=== PATIENT | female | born 1990 | race Two or more races ===

== ENCOUNTER 2024-09-27 12:55 | Emergency (ER) | payer MEDICAID, SELFPAY ==
[2024-09-27 13:11] VITALS: BP 137/86; PULSE 76; RESP 16; TEMP 36.9; O2SAT 98; BMI 26.4
--- NOTE | 2024-09-27 13:13 | XR_ITS ---
Examination: CT maxillofacial, without intravenous contrast. 2-D sagittal reconstructions. 3-D reconstructions. Date and time of exam:September 27, 2024 1353 hrs. Indications: Injury to the face today with nose pain CTDI: vol (mGy):25.3 DLP: (mGycm):438 Technique: Multiple axial images of maxillofacial region, 3.0 mm slice thickness. 2-D sagittal and coronal reconstructions. 3-D reconstructions. Low dose protocols were performed. One or more of the following dose reduction techniques were used; automated exposure control, adjustment of the mA and/or KV according to patient size, use of iterative reconstruction technique. Findings: Orbital rims intact Right nasal bone fracture with minimal offset axial image 7 No depression zygomatic arches Pterygoid plates maxilla and the mandible intact Impression: Acute minimally displaced right nasal bone fracture.
[2024-09-27] MEDS: HYDROcodone/APAP 5/325 TABLET 1 TAB PO (13:59)
--- NOTE | 2024-09-27 14:14 | PD.EDADULT ---
ED General RME/HPI General Chief complaint: General Adult/Misc Complain Stated complaint: RAN INTO KITCHEN CABINET W/ NOSE Time Seen by Provider: 09/27/24 13:13 Arrival date/time: 09/27/24 12:55 34-year-old female presents Emergency Department today with complaints of pain to her nose with mild swelling. Patient reports that she accidentally ran into a cabinet in the kitchen injuring her nose today patient with no headache dizziness or weakness Limitations: no limitations Related Data Previous Rx's ?Medication ?Instructions ?Recorded hydrocodone 5 mg-acetaminophen 325 1 tab PO BID PRN pain #10 tabs 09/27/24 mg tablet Allergies Allergy/AdvReac Type Severity Reaction Status Date / Time No Known Allergies Allergy Verified 09/27/24 13:00 Review of Systems Review of Systems Systems Reviewed: All systems reviewed, normal except as documented Constitutional Constitutional: Reports system reviewed and no additional complaints, except as documented, Denies fever(s) and Denies headache(s) Eyes Eyes: Reports system reviewed and no additional complaints, except as documented and Denies blurry vision ENT Ears, Nose, Mouth, and Throat: Reports system reviewed and no additional complaints, except as documented, Denies headache(s), Denies nasal congestion, Denies nasal discharge and Reports nose pain Cardiovascular Cardiovascular: Reports system reviewed and no additional complaints, except as documented, Denies chest pain and Denies dyspnea Respiratory Respiratory: Reports system reviewed and no additional complaints, except as documented, Denies chest congestion, Denies cough and Denies dyspnea Gastrointestinal Gastrointestinal: Reports system reviewed and no additional complaints, except as documented and Denies abdominal pain Integumentary/Breasts Skin/Breast: Reports system reviewed and no additional complaints, except as documented and Denies rash Neurologic Neurologic: Reports system reviewed and no additional complaints, except as documented, Reports as per HPI and Denies headache(s) Past Medical History Social History SMOKING STATUS: Never smoker ED Exam General Limitations: Present no limitations General appearance: Present alert and in no apparent distress Expanded Head Exam Head image:  1. Trauma Eye Eye exam: Present normal appearance, PERRL and EOMI ENT ENT exam: Present normal exam, normal oropharynx and mucous membranes moist Neck Neck exam: Present normal inspection, full ROM and trachea midline Chest Chest inspection: Present normal inspection and symmetric chest wall rise Respiratory Respiratory exam: Present normal lung sounds bilaterally Cardiovascular Cardiovascular exam: Present regular rate, normal rhythm and normal heart sounds Abdominal Exam Abdominal exam: Present soft and normal bowel sounds Extremities Exam Extremities exam: Present normal inspection and full ROM Back Exam Back exam: Present normal inspection and full ROM Neurological Exam Neurological exam: Present alert, oriented X3, CN II-XII intact, normal gait and reflexes normal; Absent motor sensory deficit Psychiatric Psychiatric exam: Present normal affect and normal mood Skin Skin exam: Present warm, dry, intact and normal color; Absent rash Course Quality Measures none Orders Category Date Time Status CT facial bones wo con Stat Exams 09/27/24 13:13 Completed HYDROcodone*/APAP 5/325 [Kinmundy 5/325] Med 09/27/24 13:13 Discontinued 1 tab PO X1 ONE Vital Signs Vital signs: Vital Signs Temperature 98.5 F 09/27/24 13:11 Pulse Rate 76 09/27/24 13:11 Respiratory Rate 16 09/27/24 13:11 Blood Pressure 137/86 H 09/27/24 13:11 Pulse Oximetry (%) 98 09/27/24 13:11 Oxygen Delivery Method Room Air 09/27/24 13:11 O2 saturation 98% on room air within normal limits Discharge Plan Plan Patient Disposition: HOME (Self Care) Discharge Disposition comment: Stable Prescriptions/Referrals Prescriptions/Med Rec: New hydrocodone-acetaminophen 5-325 mg tablet 1 tab PO BID MDD 10 PRN (Reason: pain) Qty: 10 0RF Referrals: No Primary/Family,Physician [Primary Care Provider] - 09/28/24 Problem List Clinical Impression: Closed fracture nasal bone Patient/Caregiver Discharge Instructions Education Materials: Facial Fracture Additional Instructions: Please follow up with your primary care doctor in the next 24-48hrs for any worsening symptoms return here immediately Print Language: Zambian Stand Alone Forms: The [employer] travel Info., Patient Portal Info Letter 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 Patient reports that she accidentally ran into a cabinet in the kitchen injuring her nose today patient with no headache dizziness or weakness On exam patient well-appearing patient is not appear ill or toxic no acute distress on exam patient has trauma to the nose no significant deformity Patient has no lacerations CT scan of the facial bones obtained patient does have fracture of the nasal bone Patient given pain medication here discharged home with pain medication Patient strongly encouraged to follow-up with ENT specialist soon as possible Clinical Information Provided by patient Medical Records Reviewed [facility] Meds/Rx Considered, not Ordered Describe details: Given Labs/Rad/Tests considered, not Ordered Describe details: Obtained Chronic Illness/Social Conditions which may negatively complicate care or outcome(s)-explain: None or not applicable EKG EKG not done Imaging Imaging interpretation: see narrative above Provider imaging interpretation(s): Radiology obtain Radiology reports / interpretation(s): Reviewed by me Medication Administration(s) Medication Administration History Discontinued Medications Hydrocodone Bitart/Acetaminophen (Hydrocodone/Apap 5/325 Tablet) 1 tab PO X1 ONE Stop: 09/27/24 13:14 Last Admin: 09/27/24 13:59 Dose: 1 tab Documented By: LP Given Diagnosis Differential diagnosis: Facial fracture, nasal bone fracture, laceration, abrasion Dispositon Disposition: Discharge Home
[2024-09-27 14:32] VITALS: BP 122/62; PULSE 62; RESP 18; TEMP 36.7; O2SAT 99
== END 2024-09-27 14:33 | disposition home or self-care (01) ==
PROVIDERS: Emergency Provider Family Medicine
DX: S02.2XXA Fracture of nasal bones, initial encounter for closed fracture (principal); W22.8XXA Striking against or struck by other objects, initial encounter; Y92.000 Kitchen of unspecified non-institutional (private) residence as the place of occurrence of the external cause
CPT/HCPCS: 70486; 99284; A9270